=== PATIENT | female | born 1985 | race Caucasian/White ===

== ENCOUNTER 2018-01-20 13:32 | Inpatient (IN) | payer OTHER ==
[~2018-01-20] VITALS: Ht 165.1 cm; Wt 63.7 kg
[2018-01-20 15:11] VITALS: BP 119/75
[2018-01-20 15:28] LABS: BILIRUBIN NEGATIVE (NEGATIVE); BLOOD NEGATIVE (NEGATIVE); CLARITY SL CLOUDY (CLEAR); COLOR YELLOW (YELLOW); GLUCOSE NEGATIVE (NEGATIVE); KETONE NEGATIVE (NEGATIVE); LEUKO ESTERASE NEGATIVE (NEGATIVE); NITRITE POSITIVE (NEGATIVE); PH 5.5 (5.0-9.0); SPECIFIC GRAVITY >= 1.030 (1.005-1.030); UROBILINOGEN 0.2 E.U./dl (0.2-1.0)
[2018-01-20 15:36] LABS: URINE AMPHETAMINES > 1000 (1000ng/ml); URINE BARBITURATES < 200 (200ng/ml); URINE BENZODIAZEPINES < 200 (200ng/ml); URINE CANNABINOIDS (THC) > 50 (50ng/ml); URINE COCAINE < 300 (300ng/ml); URINE METHADONE < 300 (300ng/ml); URINE OPIATES > 300 (300ng/ml)
[2018-01-20 15:38] LABS: BASO # 0.1 10*3/uL (0.0-0.1); BASO % 0.7 % (0.0-1.0); EOS # 0.2 10*3/uL (0.0-0.4); EOS % 3.2 % (1.0-4.0); HEMATOCRIT 38.9 % (37.0-47.0); HEMOGLOBIN 12.5 g/dl (12.0-16.0); LYMPH # 2.4 10*3/uL (1.3-4.4); LYMPH % 32.3 % (27.0-41.0); MEAN CELL VOLUME 86.8 fl (81.0-99.0); MEAN CORPUSCULAR HGB 27.9 pg (27.0-31.0); MEAN CORPUSCULAR HGB CONC 32.1 g/dl (33.0-37.0); MEAN PLATELET VOLUME 10.6 fl (9.6-12.3); MONO # 0.7 10*3/uL (0.1-1.0); MONO % 8.8 % (3.0-9.0); NEUT # 4.1 10*3/uL (2.3-7.9); NEUT % 54.7 % (47.0-73.0); PLATELET COUNT AUTOMATED 270 10*3/uL (130-400); RED BLOOD COUNT 4.48 10*6/uL (4.10-5.10); RED CELL DISTRI WIDTH 12.7 % (0-14.5); WHITE BLOOD COUNT 7.4 10*3/uL (4.8-10.8)
[2018-01-20 15:43] LABS: URINE PHENCYCLIDINE < 25 (25ng/ml)
[2018-01-20 15:47] LABS: BACTERIA 4+
[2018-01-20 15:55] LABS: ALBUMIN 3.2 gm/dl (3.1-4.5); ALKALINE PHOSPHATASE 56 U/L (45-117); BUN 7 mg/dl (7-24); CHLORIDE 105 mmol/L (98-107); CREATININE 0.68 mg/dL (0.55-1.02); POTASSIUM 3.6 mmol/L (3.5-5.1); SGOT/AST 11 IU/L (3-35); SGPT/ALT 14 U/L (12-78); SODIUM 141 mmol/L (136-145); TOTAL PROTEIN 6.5 gm/dL (6.4-8.2)
[2018-01-20 16:00] VITALS: BP 119/75
[2018-01-20 16:00] LABS: BETA-HCG, QUANT < 1.0 mIU/mL (1-3); ETHYL ALCOHOL < 3.0 mg/dl (<3)
[2018-01-20 20:00] VITALS: BP 102/56
[2018-01-21] VITALS: BP 90/47
[2018-01-21 08:00] VITALS: BP 106/56
[2018-01-21 12:00] VITALS: BP 111/62
[2018-01-21 16:00] VITALS: BP 92/50
[2018-01-21 20:00] VITALS: BP 113/64
[2018-01-22] VITALS: BP 95/44
[2018-01-22 08:00] VITALS: BP 96/54
[2018-01-22 12:00] VITALS: BP 96/50
[2018-01-22 16:00] VITALS: BP 110/60
[2018-01-22 20:00] VITALS: BP 113/58
[2018-01-23] VITALS: BP 101/51
[2018-01-23 06:02] LABS: BASO # 0.1 10*3/uL (0.0-0.1); BASO % 1.1 % (0.0-1.0); EOS # 0.2 10*3/uL (0.0-0.4); EOS % 3.9 % (1.0-4.0); HEMATOCRIT 40.7 % (37.0-47.0); HEMOGLOBIN 13.4 g/dl (12.0-16.0); LYMPH # 3.3 10*3/uL (1.3-4.4); LYMPH % 53.5 % (27.0-41.0); MEAN CELL VOLUME 86.2 fl (81.0-99.0); MEAN CORPUSCULAR HGB 28.4 pg (27.0-31.0); MEAN CORPUSCULAR HGB CONC 32.9 g/dl (33.0-37.0); MEAN PLATELET VOLUME 11.2 fl (9.6-12.3); MONO # 0.6 10*3/uL (0.1-1.0); MONO % 9.4 % (3.0-9.0); NEUT % 32.1 % (47.0-73.0); PLATELET COUNT AUTOMATED 263 10*3/uL (130-400); RED BLOOD COUNT 4.72 10*6/uL (4.10-5.10); RED CELL DISTRI WIDTH 12.7 % (0-14.5); WHITE BLOOD COUNT 6.1 10*3/uL (4.8-10.8)
[2018-01-23 06:25] LABS: CREATININE 0.76 mg/dL (0.55-1.02)
[2018-01-23 08:00] VITALS: BP 115/65
[2018-01-23] MEDS ORDERED: MACROBID100 M1 PO (11:22)
[2018-01-23] MEDS ORDERED: ATARAX,VISTARIL50 MG PO (11:22)
== END 2018-01-23 12:23 | disposition home or self-care (01) | DRG 897 ==
LOC: 4E 13:32
PROVIDERS: Emergency Medicine; Internal Medicine Hospice and Palliative Medicine
DX: F11.23 Opioid dependence with withdrawal (principal); F19.20 Other psychoactive substance dependence, uncomplicated; N39.0 Urinary tract infection, site not specified; F12.10 Cannabis abuse, uncomplicated; F15.10 Other stimulant abuse, uncomplicated; F17.210 Nicotine dependence, cigarettes, uncomplicated; Z80.7 Family history of other malignant neoplasms of lymphoid, hematopoietic and related tissues; Z71.6 Tobacco abuse counseling